=== PATIENT | male | born 1945 | race Caucasian/White ===

== ENCOUNTER 2018-01-08 18:15 | Emergency (ER) | payer MEDICARE ==
[~2018-01-08] VITALS: Ht 172.7 cm; Wt 81.6 kg
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
--- NOTE | 2018-01-08 18:30 | NUR ---
DEGRASSE R[employer] CLEANER AT BEDSIDE FOR EVAL
[2018-01-08] MEDS ORDERED: NAPROXEN 250 MG TABLET ONE (18:36)
[2018-01-08] MEDS ORDERED: NAPROXEN 250 MG TABLET PO ONE (19:00)
--- NOTE | 2018-01-08 19:15 | NUR ---
Report given to vance becerril for JOHAN.
[2018-01-08] MEDS ORDERED: ONDANSETRON 4 MG TAB.RAPDIS ONE (19:42)
[2018-01-08] MEDS ORDERED: HYDROCODONE/APAP 5/325MG 1 EACH TABLET ONE (19:42)
[2018-01-08 19:51] VITALS: BP 155/81
== END 2018-01-08 19:52 | disposition home or self-care (01) ==
LOC: ER 18:19
DX: S20.211A Contusion of right front wall of thorax, initial encounter (principal); E78.00 Pure hypercholesterolemia, unspecified; M79.604 Pain in right leg; V43.52XA Car driver injured in collision with other type car in traffic accident, initial encounter; Y93.89 Activity, other specified; Y92.89 Other specified places as the place of occurrence of the external cause; Y99.8 Other external cause status
CPT/HCPCS: 71100; 73551; 99284; A4606; 73552; Q0162; Z7610